=== PATIENT | female | born 1995 | race Caucasian/White ===

== ENCOUNTER 2016-08-12 19:00 | Emergency (ER) | payer MEDICAID ==
[~2016-08-12 19:00] MED LIST: AMOXICILLIN875 MG PO; FLONASE 0.05% N16 G1 INH; KEFLEX500 MG PO; LEVOTHYROXINE50 MC1 PO; METHOTREXATE; NO MEDICATIONS; PREDNISONE PO; SUDAFED PO; ZYRTEC10 M1 PO
[2016-08-12 19:06] LABS: INFLUENZA A NEG (NEG); INFLUENZA B NEG (NEG)
== END 2016-08-12 19:32 | disposition home or self-care (01) ==
LOC: SED 19:00
PROVIDERS: Nurse Practitioner
DX: J02.9 Acute pharyngitis, unspecified (principal); E03.9 Hypothyroidism, unspecified; L40.9 Psoriasis, unspecified; Z77.22 Contact with and (suspected) exposure to environmental tobacco smoke (acute) (chronic)
CPT/HCPCS: 87651; 87804; 99283